=== PATIENT | female | born 1950 | race Caucasian/White ===

== ENCOUNTER → 2017-07-07 | Outpatient (CLI) | payer OTHER ==
[~2017-07-07] MED LIST: FOSAMAX70 MG; HCTZ PO; KCL PO; KEFLEX PO; SILVADENE TOP; SYNTHROID PO
--- NOTE | ~2017-07-07 | MY29 ---
[facility] A Service [facility] RADIOLOGY TEXT RESULTS PATIENT: TRISTA ELIZONDO LOCATION: [facility] : 50 UNIT #: [id number] AGE: [address]: PADMINI FITZPATRICK MD SEX: F ORDER DR: [id number] [place], [place] [address] [id number] O MR#: [id number] Acc #: [id number] NAME: TRISTA ELIZONDO : 1950 SEX: F STUDY DATE/TIME: 07/07/2017 14:04 UNIT: [facility] ROOM: STUDY DESCRIPTION: [facility] SCREENING W/ CAD BILAT Attending Physician: Padmini Fitzpatrick M.D. Referring Physician: Padmini Fitzpatrick M.D. Ordering Physician: Padmini Fitzpatrick M.D. Primary Care Physician: Padmini Fitzpatrick M.D. MEDICAL IMAGING REPORT This report is preliminary unless electronic signature is present EXAM Bilateral digital screening mammogram with CAD DATE 07/07/2017 HISTORY 66-year-old female with no personal family history of breast cancer or current complaints. COMPARISON Bilateral screening mammogram 06/27/2016 and 06/19/2015. FINDINGS CC and MLO views were obtained of each breast utilizing digital technique and reviewed with an FDA-approved CAD device. Heterogeneously dense fibroglandular tissue is present bilaterally which can limit the sensitivity of mammography. No suspicious nodule, architectural distortion, or clustered microcalcification is seen. No abnormal skin thickening or nipple retraction. IMPRESSION Routine bilateral screening mammograms recommended in 1 year. Patient's over the age of 40 are entered into a reminder system with target due date for the next mammogram. BIRADS: 2 Benign findings [facility] A Service [facility] RADIOLOGY TEXT RESULTS PATIENT: TRISTA ELIZONDO LOCATION: [facility] : 50 UNIT #: [id number] AGE: [address]: PADMINI FITZPATRICK MD SEX: F ORDER DR: Dictated by... Solange Lam M.D. THIS IS AN ELECTRONICALLY VERIFIED REPORT Solange Lam M.D. at 07/12/2017 3:27 PM Jose/elvira TD: 07/08/2017 13:44 JOB #: [id number] MEDICAL IMAGING REPORT Page 1 of 1 COPY
== END | disposition home or self-care (01) ==
LOC: CWCC 13:30
DX: Z12.31 Encounter for screening mammogram for malignant neoplasm of breast (principal)
CPT/HCPCS: G0202